=== PATIENT | male | born 1980 | race Caucasian/White ===

== ENCOUNTER 2017-10-11 16:50 | Emergency (ER) | payer BC ==
[2017-10-11 18:08] VITALS: BP 133/81
--- NOTE | 2017-10-11 18:34 | UC ---
Skin Complaint HPI - HPI Summary HPI Summary: Patient is a 37-year-old male that presents here for evaluation of by a lower extremity rash that started this morning. The rashes on both legs. Rash does not extend higher than the mid carrizales nor lower than the ankle. He has a diffuse erythema with petechiae. The rash is not palpable. There are no subcutaneous nodules. He denies any oral pain or lesions. For the 3 days prior to this he was sick with myalgias and fever chills and mild headache. He has not been febrile today. He has been camping in [facility]. Denies any tick bites. He denies any stiff neck. He has no chest pain or shortness of breath. He states that the rash feels like a mild sunburn. He takes Aleve. No new medications. - History of Current Complaint Chief Complaint: UCRash Time Seen by Provider: 10/11/17 18:18 Stated Complaint: BILATERAL LEG RASH COMPLAINT Hx Obtained From: Patient Onset/Duration: Gradual Onset, Lasting Hours Timing: Constant Onset Severity: Mild Current Severity: Mild Pain Intensity: 3 Location: Discrete - lower legs Character: Pain, Redness Aggravating Factor(s): Nothing Alleviating Factor(s): Nothing Associated Signs & Symptoms: Positive: Rash - Allergy/Home Medications Allergies/Adverse Reactions: Allergies Allergy/AdvReac Type Severity Reaction Status Date / Time No Known Allergies Allergy Verified 10/11/17 18:07 Home Medications: Home Medications Benazepril HCl 40 mg PO BEDTIME 10/11/17 [History Confirmed 10/11/17] Naproxen Sodium [Aleve] 220 mg PO DAILY 10/11/17 [History Confirmed 10/11/17] amLODIPine TAB* [Norvasc 5 mg TAB*] 10 mg PO BEDTIME 10/11/17 [History Confirmed 10/11/17] busPIRone TAB* [Buspar TAB*] 7.5 mg PO BID 10/11/17 [History Confirmed 10/11/17] Review of Systems Constitutional: Negative Skin: Rash Eyes: Negative ENT: Negative Respiratory: Negative Cardiovascular: Negative Gastrointestinal: Negative Genitourinary: Negative Motor: Negative Neurovascular: Negative Musculoskeletal: Negative Neurological: Negative Psychological: Negative Is Patient Immunocompromised?: No All Other Systems Reviewed And Are Negative: Yes PMH/Surg Hx/FS Hx/Imm Hx Previously Healthy: Yes Cardiovascular History: Hypertension - Surgical History Surgical History: Yes Surgery Procedure, Year, and Place: tonsillectomy. left hernia inguinal repair - Family History Known Family History: Positive: Hypertension - Social History Alcohol Use: Weekly Alcohol Amount: few nights a week Substance Use Type: None Smoking Status (MU): Never Smoked Tobacco Physical Exam Triage Information Reviewed: Yes Appearance: Well-Appearing, No Pain Distress, Well-Nourished Vital Signs: Initial Vital Signs Temp 97.7 F 10/11/17 18:00 Pulse 77 10/11/17 18:00 Resp 17 10/11/17 18:00 BP 133/81 10/11/17 18:00 Pulse Ox 100 10/11/17 18:00 Vital Signs Reviewed: Yes Eyes: Positive: Conjunctiva Clear ENT: Positive: Normal ENT inspection, Pharynx normal, Uvula midline. Negative: Nasal congestion, Nasal drainage, Tonsillar swelling, Tonsillar exudate, Trismus , Muffled voice, Hoarse voice, Dental tenderness, Sinus tenderness Dental Exam: Normal Respiratory: Positive: Chest non-tender, Lungs clear, Normal breath sounds, No respiratory distress, No accessory muscle use Cardiovascular: Positive: RRR, No Murmur Abdomen Description: Positive: Nontender, No Organomegaly. Negative: CVA Tenderness (R), CVA Tenderness (L), Distended, Guarding Bowel Sounds: Positive: Present Musculoskeletal: Positive: ROM Intact, No Edema, Other: - no hot joints Neurological: Positive: Alert Psychological Exam: Normal Skin Exam: Other - petechiae on both lower ext with some diffuse erthyema Course/Dx - Diagnoses Provider Diagnoses: vasculitis Discharge - Sign-Out/Discharge Documenting (check all that apply): Patient Departure - Discharge Plan Condition: Stable Disposition: HOME Patient Education Materials: Purpura (ED) Referrals: Falguni Mayfield MD [Primary Care Provider] - 2 Days Additional Instructions: blood work is pending get in to see your provider this week recheck for new symptoms stop aleve for now you may take tylenol - Billing Disposition and Condition Condition: STABLE Disposition: Home
[2017-10-12 11:22] LABS: Hematocrit 40 % (42-52); Hemoglobin 13.8 g/dl (14.0-18.0); Mean Corpuscular HGB Conc 35 g/dl (31-36); Mean Corpuscular Hemoglobin 32 pg (27-31); Mean Corpuscular Volume 92 fL (80-94); Mean Platelet Volume 9.4 um3 (7.4-10.4); Platelet Count 115 10^3/ul (150-450); Red Blood Count 4.36 10^6/ul (4.00-5.40); Red Cell Distribution Width 13 % (10.5-15); White Blood Count 5.2 10^3/ul (3.5-10.8)
[2017-10-12 11:26] LABS: ABS Basophils 0.1 10^3/ul (0-0.2); ABS Eosinophils 0.3 10^3/ul (0-0.6); ABS Lymphocytes 1.9 10^3/ul (1.0-4.8); ABS Monocytes 1.1 10^3/ul (0-0.8); ABS Neutrophils 1.7 10^3/ul (1.5-7.7)
[2017-10-12 11:28] LABS: EGFR Non-African American 94.8 (>60)
[2017-10-12 12:09] LABS: ABS Basophils 0 10^3/ul (0-0.2); ABS Neutrophils 1.9 10^3/ul (1.5-7.7); Monocytes % 13 % (0-7)
--- NOTE | 2017-10-13 07:47 | UC ---
- Progress Note Progress Note: CMP reviewed - non concerning CBC - platelets 115, wnc 5.2 with non concerning dif sed rate mildly elevated no change in management pt advised to f/u with PCP and given return prescriptions 10/13/17 7:47am Discharge - Sign-Out/Discharge Documenting (check all that apply): Post-Discharge Follow Up - Discharge Plan Condition: Stable Disposition: HOME Patient Education Materials: Valerio (ED) Referrals: Falguni Mayfield MD [Primary Care Provider] - 2 Days Additional Instructions: blood work is pending get in to see your provider this week recheck for new symptoms stop aleve for now you may take tylenol - Billing Disposition and Condition Condition: STABLE Disposition: Home
== END 2017-10-11 18:48 | disposition home or self-care (01) ==
LOC: UCCORT 16:50
DX: I77.6 Arteritis, unspecified (principal); I10 Essential (primary) hypertension
CPT/HCPCS: 36415; 80053; 85025; 85060; 85652; 86038; 86617; 86618; 99201; G0463